=== PATIENT | female | born 1955 | race Caucasian/White ===

== ENCOUNTER 2018-06-21 20:35 | Emergency (ER) | payer BC ==
[~2018-06-21] VITALS: Ht 157.5 cm; Wt 99.5 kg
[2018-06-21 20:38] VITALS: TEMP 98
[2018-06-21 21:26] LABS: BASO % 0.4 % (0.0-2.0); EOS # 0.1 (0.0-0.7); EOS % 1.2 % (0-4.0); GRAN # 5.4 (1.4-6.5); GRAN % 63.4 % (42.2-75.2); HEMATOCRIT 39.9 % (37.0-47.0); HEMOGLOBIN 13.2 g/dl (12.5-16.0); LYMPH # 2.4 (1.2-3.4); LYMPH % 27.7 % (20.0-51.0); MEAN CELL VOLUME 94 fl (80.0-100.0); MEAN CORPUSCULAR HEMOGLOBIN 31 pg (27.0-31.0); MEAN CORPUSCULAR HGB CONC 33 g/dl (33.0-37.0); MEAN PLATELET VOLUME 10.5 fl (7.4-10.4); MONO # 0.6 (0.1-0.6); MONO % 7.1 % (1.7-9.3); PLATELET COUNT 216 K/mm3 (130-400); RED BLOOD COUNT 4.26 M/mm3 (4.10-5.30); REDCELL DISTRIBUTION WIDTH-CV 12.1 % (11.5-14.5)
[2018-06-21 21:34] LABS: ALANINE AMINOTRANSFERASE 31 U/L (9-52); ALBUMIN 4.2 gm/dL (3.5-5.0); ALKALINE PHOSPHATASE 61 U/L (50-136); ANION GAP 9 mmol/L (7-16); AST,SGOT 27 U/L (15-37); BILIRUBIN,TOTAL 0.5 mg/dL (0.0-1.0); BLOOD UREA NITROGEN 16 mg/dL (7-17); C-REACTIVE PROTEIN 2.9 mg/dL (0.0-0.9); CALCIUM 8.5 mg/dL (8.4-10.2); CARBON DIOXIDE 33 mmol/L (22-30); CHLORIDE 98 mmol/L (98-107); CREATININE, serum 0.75 mg/dL (0.52-1.25); GLUCOSE 103 mg/dL (74-106); LIPASE 114 U/L (23-300); POTASSIUM 3.7 mmol/L (3.4-5.0); SODIUM 141 mmol/L (137-145); TOTAL PROTEIN 7.7 gm/dL (6.4-8.2)
[2018-06-21 21:43] LABS: TROPONIN-I < 0.012 ng/mL (0.000-0.034)
[2018-06-21] MEDS ORDERED: ZITHROMAX 250M250 MG PO (23:00)
[2018-06-21 23:35] VITALS: BP 134/53; PULSE 81
== END 2018-06-21 23:37 | disposition home or self-care (01) ==
LOC: COL.ER 20:35
PROVIDERS: Emergency Medicine
DX: J40 Bronchitis, not specified as acute or chronic (principal)

== ENCOUNTER → 2018-07-22 | Outpatient (CLI) | payer BC ==
[~2018-07-22] MED LIST: ZITHROMAX 250M250 MG PO
== END ==
LOC: COL.VAS 09:14
DX: I34.0 Nonrheumatic mitral (valve) insufficiency (principal); I51.89 Other ill-defined heart diseases

== ENCOUNTER 2018-10-23 10:58 | Day surgery (SDC) | payer BC ==
[~2018-10-23] VITALS: Ht 157.5 cm; Wt 101.4 kg
[2018-10-23 11:33] VITALS: BP 142/88; PULSE 92; TEMP 97.2
[2018-10-23 12:55] VITALS: BP 137/88; PULSE 100; TEMP 97.6
[2018-10-23 13:10] VITALS: BP 133/79; PULSE 102
[2018-10-23 13:25] VITALS: BP 107/61; PULSE 80
[2018-10-23 13:40] VITALS: BP 106/66; PULSE 77
[2018-10-23 13:55] VITALS: BP 102/63; PULSE 78
== END 2018-10-23 14:30 | disposition home or self-care (01) ==
LOC: SDCO 10:58
DX: T18.128A Food in esophagus causing other injury, initial encounter (principal); K22.2 Esophageal obstruction; D50.9 Iron deficiency anemia, unspecified; K21.9 Gastro-esophageal reflux disease without esophagitis; Z90.710 Acquired absence of both cervix and uterus
CPT/HCPCS: C1726; J2250; J3010; J7030

== ENCOUNTER → 2018-12-29 | Outpatient (CLI) | payer BC | LOC: COL.RAD 09:44 | DX: M54.5 Low back pain (principal); M25.551 Pain in right hip; M25.552 Pain in left hip; R10.2 Pelvic and perineal pain ==

== ENCOUNTER → 2019-01-21 | Outpatient (CLI) | payer BC ==
[2019-01-23 14:17] LABS: COLLECTION METHOD CLEAN CATCH; URINE COLOR Amber
[2019-01-23 14:18] LABS: PH 5 (5-8); URINE APPEARANCE Turbid; URINE BILIRUBIN Negative (NEGATIVE); URINE GLUCOSE Negative (NEGATIVE); URINE KETONE Negative (NEGATIVE); URINE PROTEIN(semi-quant) 2+ (NEGATIVE)
[2019-01-23 14:19] LABS: SQUAMOUS EPITHELIAL >50 /hpf; URINE BLOOD 2+ (NEGATIVE); URINE LEUKOCYTE ESTERASE 3+ (NEGATIVE); URINE NITRATE Negative (NEGATIVE); URINE RBC 20-50 /hpf
[2019-01-23 14:20] LABS: BUDDING YEAST Present /hpf
== END ==
LOC: ZCOL.LAB 14:18
PROVIDERS: Family Medicine
DX: R35.0 Frequency of micturition (principal)

== ENCOUNTER → 2019-02-02 | Outpatient (CLI) | payer BC | LOC: COL.RAD 09:00 | DX: M51.36 Other intervertebral disc degeneration, lumbar region (principal); M12.88 Other specific arthropathies, not elsewhere classified, other specified site ==

== ENCOUNTER → 2019-02-02 | Outpatient (CLI) | payer BC ==
[2019-02-02 16:12] LABS: ALANINE AMINOTRANSFERASE 28 U/L (9-52); ALBUMIN 3.9 gm/dL (3.5-5.0); ALKALINE PHOSPHATASE 65 U/L (50-136); ANION GAP 7 mmol/L (7-16); AST,SGOT 21 U/L (15-37); BILIRUBIN,TOTAL 0.8 mg/dL (0.0-1.0); BLOOD UREA NITROGEN 15 mg/dL (7-17); CALCIUM 9.2 mg/dL (8.4-10.2); CARBON DIOXIDE 34 mmol/L (22-30); CHLORIDE 99 mmol/L (98-107); CREATININE, serum 0.74 mg/dL (0.52-1.25); GLUCOSE 97 mg/dL (74-106); POTASSIUM 3.9 mmol/L (3.4-5.0); SODIUM 140 mmol/L (137-145); TOTAL PROTEIN 7.1 gm/dL (6.4-8.2)
[2019-02-02 16:14] LABS: DIGOXIN < 0.4 ng/mL (0.8-2.0)
== END ==
LOC: COL.LAB 15:25
PROVIDERS: Internal Medicine Pulmonary Disease
DX: I50.9 Heart failure, unspecified (principal)

== ENCOUNTER → 2019-02-09 | Outpatient (CLI) | payer BC ==
[2019-02-09 16:42] LABS: COLLECTION METHOD CLEAN CATCH
[2019-02-09 17:04] LABS: MUCOUS Present /lpf; PH 5 (5-8); URINE APPEARANCE Turbid; URINE BACTERIA Rare /hpf; URINE BILIRUBIN Negative (NEGATIVE); URINE BLOOD 2+ (NEGATIVE); URINE COLOR Amber; URINE GLUCOSE Negative (NEGATIVE); URINE KETONE Negative (NEGATIVE); URINE LEUKOCYTE ESTERASE 3+ (NEGATIVE); URINE NITRATE Negative (NEGATIVE); URINE PROTEIN(semi-quant) Negative (NEGATIVE)
== END ==
LOC: ZCOL.LAB 15:59
PROVIDERS: Family Medicine
DX: R35.0 Frequency of micturition (principal)

== ENCOUNTER → 2019-03-16 | Outpatient (CLI) | payer BC | LOC: MHCPAIN 08:08 | DX: G89.29 Other chronic pain (principal); M47.817 Spondylosis without myelopathy or radiculopathy, lumbosacral region; M53.3 Sacrococcygeal disorders, not elsewhere classified | CPT/HCPCS: G0463 ==

== ENCOUNTER → 2019-04-13 | Outpatient (CLI) | payer BC | LOC: MHCPAIN 10:50 | DX: G89.29 Other chronic pain (principal); M47.817 Spondylosis without myelopathy or radiculopathy, lumbosacral region; M53.3 Sacrococcygeal disorders, not elsewhere classified | CPT/HCPCS: G0463 ==

== ENCOUNTER → 2019-07-13 | Outpatient (CLI) | payer BC | LOC: MHCPAIN 09:09 | DX: G89.29 Other chronic pain (principal); M47.817 Spondylosis without myelopathy or radiculopathy, lumbosacral region; M53.3 Sacrococcygeal disorders, not elsewhere classified | CPT/HCPCS: G0463 ==

== ENCOUNTER → 2019-08-25 | Outpatient (CLI) | payer BC | LOC: MHCPAIN 08:57 | DX: G89.29 Other chronic pain (principal); M47.817 Spondylosis without myelopathy or radiculopathy, lumbosacral region; M53.3 Sacrococcygeal disorders, not elsewhere classified | CPT/HCPCS: G0463 ==

== ENCOUNTER → 2020-09-11 | Outpatient (CLI) | payer SELFPAY | LOC: COL.RAD 09:23 | DX: R10.9 Unspecified abdominal pain (principal) | CPT/HCPCS: A9537; J2805 ==

== ENCOUNTER 2020-11-07 07:48 | Day surgery (SDC) | payer MEDICARE, MEDICAID ==
[~2020-11-07] VITALS: Ht 157.5 cm; Wt 110.0 kg
[2020-11-07] MEDS ORDERED: KEPPRA 500MG500 MG PO (08:48)
[2020-11-07] MEDS ORDERED: COZAAR 50MG50 MG/TAB PO (08:49)
[2020-11-07] MEDS ORDERED: MOBIC 7.5MG7.5 MG PO (08:50)
[2020-11-07 09:05] VITALS: BP 133/75; PULSE 93; TEMP 99.4
[2020-11-07] MEDS ORDERED: BENTYL 10MG10 MG/CAP PO (09:56)
[2020-11-07 10:00] VITALS: BP 146/64; PULSE 90; TEMP 98.2
[2020-11-07 10:15] VITALS: BP 156/76; PULSE 86
[2020-11-07 10:30] VITALS: BP 145/77; PULSE 95
--- NOTE | 2020-11-07 11:09 | NUR ---
1000 ARRIVES TO [facility] VIA CART. PATIENT AMBULATED TO CHAIR WITH SBA. VSS. WARM BLANKET GIVEN FOR COMFORT. O2 AT 2L/NC. 1005 PATIENT AMBULATED TO BR WITH SBA. 1010 PATIENT AMBULATED BACK TO ROOM AND PLACED ON MONITORS AGAIN. DR. MATTHEW IN ROOM SPEAKING WITH PATIENT. PATIENT DRINKING COFFEE AND EATING A MUFFIN. DENIES COMPLAINT. 1030 VERBAL AND WRITTEN DISCHARGE INSTRUCTIONS GIVEN TO PATIENT. QUESTIONS INVITED AND ANSWERED. SCRIPT FOR DICYCLOMINE GIVEN TO PATIENT. PATIENT VERBALIZED UNDERSTANDING OF ALL INSTRUCTIONS. 1040 IV DISCONTINUED. TOLERATED WELL. PATIENT UP GETTING DRESSED. 1055 DISCHARGED TO POV WITH SPOUSE VIA W/C.
== END 2020-11-07 10:55 | disposition home or self-care (01) ==
LOC: SDCO 07:48
DX: R19.7 Diarrhea, unspecified (principal); R10.31 Right lower quadrant pain; D50.9 Iron deficiency anemia, unspecified; I10 Essential (primary) hypertension; M19.90 Unspecified osteoarthritis, unspecified site; R56.9 Unspecified convulsions; Z20.828 Contact with and (suspected) exposure to other viral communicable diseases; G47.33 Obstructive sleep apnea (adult) (pediatric); Z79.899 Other long term (current) drug therapy; Z87.891 Personal history of nicotine dependence
CPT/HCPCS: J7030

== ENCOUNTER → 2020-11-21 | Outpatient (CLI) | payer MEDICARE, MEDICAID ==
[~2020-11-21] MED LIST changes: +BENTYL 10MG10 MG/CAP PO; +COZAAR 50MG50 MG/TAB PO; +KEPPRA 500MG500 MG PO; +MOBIC 7.5MG7.5 MG PO
== END ==
LOC: COL.RAD 08:09
DX: K57.30 Diverticulosis of large intestine without perforation or abscess without bleeding (principal)

== ENCOUNTER 2020-12-27 16:02 | Inpatient (IN) | payer MEDICARE, MEDICAID ==
[~2020-12-27] VITALS: Ht 157.5 cm; Wt 100.0 kg
[2020-12-27 16:57] LABS: BASO % 0.3 % (0.0-2.0); EOS # 0.1 (0.0-0.7); EOS % 1.7 % (0-4.0); GRAN # 5.1 (1.4-6.5); GRAN % 70.5 % (42.2-75.2); LYMPH # 1.5 (1.2-3.4); LYMPH % 20.8 % (20.0-51.0); MEAN CELL VOLUME 79 fl (80.0-100.0); MEAN CORPUSCULAR HGB CONC 28 g/dl (33.0-37.0); MEAN PLATELET VOLUME 9.7 fl (7.4-10.4); MONO # 0.5 (0.1-0.6); MONO % 6.4 % (1.7-9.3); PLATELET COUNT 261 K/mm3 (130-400); RED BLOOD COUNT 3.67 M/mm3 (4.10-5.30); REDCELL DISTRIBUTION WIDTH-CV 16.5 % (11.5-14.5)
[2020-12-27 17:03] LABS: HEMATOCRIT 29.1 % (37.0-47.0); HEMOGLOBIN 8.2 g/dl (12.5-16.0); MEAN CORPUSCULAR HEMOGLOBIN 22 pg (27.0-31.0)
[2020-12-27 17:12] LABS: ALANINE AMINOTRANSFERASE 15 U/L (4-34); ALBUMIN 4.1 gm/dL (3.5-5.0); ALKALINE PHOSPHATASE 75 U/L (50-136); ANION GAP 4 mmol/L (7-16); AST,SGOT 23 U/L (15-37); BILIRUBIN,TOTAL 0.9 mg/dL (0.0-1.0); BLOOD UREA NITROGEN 12 mg/dL (7-17); C-REACTIVE PROTEIN 1.4 mg/dL (0.0-0.9); CARBON DIOXIDE 34 mmol/L (22-30); CHLORIDE 100 mmol/L (98-107); GLUCOSE 100 mg/dL (74-106); LIPASE 156 U/L (23-300); POTASSIUM 4.3 mmol/L (3.4-5.0); SODIUM 138 mmol/L (137-145); TOTAL PROTEIN 7.6 gm/dL (6.4-8.2)
[2020-12-27 17:22] LABS: TROPONIN-I < 0.012 ng/mL (0.000-0.035)
[2020-12-27 17:52] LABS: COLLECTION METHOD CLEAN CATCH
[2020-12-27 18:38] LABS: BUDDING YEAST Present /hpf; MUCOUS Present /lpf; PH 6 (5-8); URINE APPEARANCE Cloudy; URINE BACTERIA Rare /hpf; URINE BILIRUBIN Negative (NEGATIVE); URINE BLOOD 1+ (NEGATIVE); URINE COLOR Yellow; URINE GLUCOSE Negative (NEGATIVE); URINE KETONE Negative (NEGATIVE); URINE LEUKOCYTE ESTERASE 2+ (NEGATIVE); URINE NITRATE Negative (NEGATIVE); URINE PROTEIN(semi-quant) Negative (NEGATIVE); URINE UROBILINOGEN Negative (NEGATIVE)
[2020-12-27 19:18] LABS: IRON,SERUM 32 ug/dL (35-150)
[2020-12-27 19:28] LABS: TOTAL IRON BINDING CAPACITY 500 ug/dL (265-497)
--- NOTE | 2020-12-27 22:47 | NUR ---
Pt states she has not been wearing her CPAP at home and is fine with her 3lpm, refused hospital CPAP.
[2020-12-27 22:51] VITALS: BP 106/58; PULSE 70; TEMP 97.8
--- NOTE | 2020-12-27 23:28 | NUR ---
Patient arrived medical floor room 316 via wheelchair from ER at 20:05 pm. Patient alert and oriented. Patient reports SOB upon gettting up and ambulates. Patient currently on oxygen 3L via NC. SPO2 96% on 3L via NC. Patient reports buring abdominal pain 07/03 at this time. Called JOSÉ MIGUEL Payne for PRN pain meds for the patient. Patient is scheduled for EGD and Colonoscopy for tomorrow. Bowel prep started. Patient ambulates with unsteady gait. Put bed-side commode by the bed and encouraged patient to use call light when she needs to go to bathroom or needs anything. Patient verbalized understanding. Call light within reach. Patient denies further needs at this time.
[2020-12-28 00:54] VITALS: BP 132/56; PULSE 77; TEMP 97.6
[2020-12-28 07:57] LABS: BASO % 0.2 % (0.0-2.0); EOS # 0.1 (0.0-0.7); EOS % 1.8 % (0-4.0); GRAN # 4.2 (1.4-6.5); GRAN % 68.7 % (42.2-75.2); LYMPH # 1.4 (1.2-3.4); LYMPH % 23.5 % (20.0-51.0); MEAN CELL VOLUME 82 fl (80.0-100.0); MEAN CORPUSCULAR HGB CONC 27 g/dl (33.0-37.0); MEAN PLATELET VOLUME 9.5 fl (7.4-10.4); MONO # 0.3 (0.1-0.6); MONO % 5.6 % (1.7-9.3); PLATELET COUNT 230 K/mm3 (130-400); REDCELL DISTRIBUTION WIDTH-CV 16.8 % (11.5-14.5)
[2020-12-28 07:58] LABS: CALCIUM 10.4 mg/dL (8.4-10.2); CREATININE, serum 0.76 (0.52-1.25); HEMATOCRIT 27.1 % (37.0-47.0); HEMOGLOBIN 7.4 g/dl (12.5-16.0); MEAN CORPUSCULAR HEMOGLOBIN 22 pg (27.0-31.0); POTASSIUM 4.1 mmol/L (3.4-5.0)
[2020-12-28 08:32] VITALS: BP 118/51; PULSE 73; TEMP 97.7
--- NOTE | 2020-12-28 09:27 | NUR ---
Initial visit; Patient thanked Product Marketing Manager for offering prayer and God's blessings. Product Marketing Manager will follow up.
--- NOTE | 2020-12-28 09:30 | NUR ---
Technical Report Writer met with patient to discuss discharge planning. Patient lives in [place], [place] with her Nir (ph#[phone]). Patient reports her will be here around noon today to visit. Patient sees Dr. Santo in [place] for primary care and obtains medications from the [facility] with no difficulties. Patient has a walker and wheelchair at home but reports she only uses the wheelchair when she goes out. Patient also has home oxygen through [employer]. Patient reports independence with ADLS and plans to return home upon discharge. Patient states she had DPOA-HC which designates her , although SW did not find copy in EMR. SW will continue to follow for discharge needs.
--- NOTE | 2020-12-28 10:59 | NUR ---
Churn Driller attended clinical rounds with the team. SW requested PT/OT orders and will continue to follow.
[2020-12-28 11:44] VITALS: BP 112/62; PULSE 75; TEMP 97.4
[2020-12-28 16:16] LABS: HEMATOCRIT 24.1 % (37.0-47.0); HEMOGLOBIN 6.7 g/dl (12.5-16.0)
[2020-12-28 16:55] VITALS: BP 108/47; PULSE 73; TEMP 97.9
[2020-12-28 21:35] VITALS: BP 111/42; PULSE 77; TEMP 97.9
[2020-12-29] VITALS (18 sets, daily range): BP systolic 97–137; BP diastolic 34–80; PULSE 61–96; TEMP 98–99.4
--- NOTE | 2020-12-29 03:42 | NUR ---
Blood transfusion complete. Patient denies any adverse reactions and none noted. V/S stable.
[2020-12-29 07:09] LABS: BASO % 0.2 % (0.0-2.0); EOS % 0.5 % (0-4.0); GRAN # 4.5 (1.4-6.5); GRAN % 77.6 % (42.2-75.2); LYMPH % 16.8 % (20.0-51.0); MEAN CELL VOLUME 85 fl (80.0-100.0); MEAN CORPUSCULAR HGB CONC 28 g/dl (33.0-37.0); MEAN PLATELET VOLUME 10.5 fl (7.4-10.4); MONO # 0.3 (0.1-0.6); MONO % 4.6 % (1.7-9.3); PLATELET COUNT 200 K/mm3 (130-400); RED BLOOD COUNT 3.13 M/mm3 (4.10-5.30); REDCELL DISTRIBUTION WIDTH-CV 16.9 % (11.5-14.5)
[2020-12-29 07:36] LABS: CALCIUM 10.2 mg/dL (8.4-10.2); CREATININE, serum 0.81 (0.52-1.25); POTASSIUM 4.2 mmol/L (3.4-5.0)
[2020-12-29 07:37] LABS: HEMATOCRIT 26.6 % (37.0-47.0); HEMOGLOBIN 7.5 g/dl (12.5-16.0); MEAN CORPUSCULAR HEMOGLOBIN 24 pg (27.0-31.0)
--- NOTE | 2020-12-29 14:20 | NUR ---
Primary nurse was assisted with [id number] patient care by [employer] [facility] student Kerry Arechiga and [facility] Gunjan Cavanaugh RN-.
--- NOTE | 2020-12-29 15:20 | NUR ---
Foil Stamp Operator met with patient to review PT/OT recommendation for Home Health. Patient declined HH services and states she does not want people in her home due to COVID 19. SW contacted patient's to review discharge plan. Patient's , Nir has no concerns about patient returning home but had some questions for Hospitalist. SW contacted JOSÉ MIGUEL Proctor who will give Nir a call. FRANK will continue to follow.
[2020-12-29 17:07] LABS: HEMATOCRIT 29.9 % (37.0-47.0); HEMOGLOBIN 8.6 g/dl (12.5-16.0)
--- NOTE | 2020-12-29 18:43 | NUR ---
PT HAD ANOTHER UNIT OF BLOOD TRANSFUSED TODAY. HGB WENT UP 1 POINT FROM 7.5 TO 8.5. PT HAS HAD SOME NAUSEA, WAS GIVEN 4MG OF ZOFRAN, SOME SALTINE CRACKERS AND SPRITE. PT UPDATED TO DNR STATUS TODAY. NO FURTHER CONCERNS WILL REPORT TO MUSIC STORE MANAGER.
--- NOTE | 2020-12-29 20:15 | NUR ---
Resting in bed. Reported nausea. Ordered obtained for phenergan. Will provide to patient. Assessment complete. Lungs clear. Heart sounds normal. Bowels active x4. Pulses present throughout. BLE edema +1. INT left forearm flushed without complications. Reports pain in ABD. 7/10. Given PRN dilaudid. Denies other needs. Call light in reach.
[2020-12-30] VITALS (8 sets, daily range): BP systolic 112–125; BP diastolic 41–67; PULSE 66–82; TEMP 97.4–99.1
[2020-12-30 02:52] LABS: COLLECTION METHOD CLEAN CATCH
[2020-12-30 03:02] LABS: MUCOUS Present /lpf; PH 5 (5-8); URINE APPEARANCE Turbid; URINE BACTERIA None Seen /hpf; URINE BILIRUBIN Negative (NEGATIVE); URINE BLOOD 1+ (NEGATIVE); URINE COLOR Amber; URINE GLUCOSE Negative (NEGATIVE); URINE KETONE Negative (NEGATIVE); URINE LEUKOCYTE ESTERASE 2+ (NEGATIVE); URINE NITRATE Negative (NEGATIVE); URINE PROTEIN(semi-quant) Negative (NEGATIVE); URINE UROBILINOGEN Negative (NEGATIVE)
--- NOTE | 2020-12-30 06:11 | NUR ---
Patient required phenergan and dilaudid throughout night. Otherwise uneventful night. Resting in bed this AM. Call light in reach.
--- NOTE | 2020-12-30 06:37 | NUR ---
JUDICIAL ADMINISTRATIVE ASSISTANT reported patient slurring words after recent adminstration of phenergan. Patient neuro check intact but reporting right side facial numbness. Grimace equal, smile not large but equal when asked to smile. Alert and orientated. Spoke with Flor VALDEZ. Obtain stat CT head. Patient taken to CT
[2020-12-30 07:07] LABS: BASO % 0.2 % (0.0-2.0); EOS % 0.2 % (0-4.0); GRAN # 4.5 (1.4-6.5); GRAN % 71.9 % (42.2-75.2); LYMPH # 1.1 (1.2-3.4); LYMPH % 17.7 % (20.0-51.0); MEAN CELL VOLUME 87 fl (80.0-100.0); MEAN CORPUSCULAR HGB CONC 28 g/dl (33.0-37.0); MEAN PLATELET VOLUME 10.2 fl (7.4-10.4); MONO # 0.6 (0.1-0.6); PLATELET COUNT 191 K/mm3 (130-400)
--- NOTE | 2020-12-30 07:11 | NUR ---
Report given to JOHANNA Pollock
[2020-12-30 07:19] LABS: CALCIUM 10.4 mg/dL (8.4-10.2); CREATININE, serum 0.84 (0.52-1.25); HEMOGLOBIN 8.7 g/dl (12.5-16.0); MEAN CORPUSCULAR HEMOGLOBIN 24 pg (27.0-31.0); POTASSIUM 4.1 mmol/L (3.4-5.0)
[2020-12-30 07:20] LABS: HEMATOCRIT 31.4 % (37.0-47.0)
--- NOTE | 2020-12-30 07:30 | NUR ---
Pt back to room from CT. Sitting up in chair. Still having some slurred speech.
--- NOTE | 2020-12-30 08:56 | NUR ---
Assessment complete. Pt lying in bed. Speech is much clearer than earlier in shift. Pt c/o nausea, PRN zofran given. Will give PO meds once nausea improves. Pt denies further needs at this time. Bed alarm on. Call light within reach.
--- NOTE | 2020-12-30 10:51 | NUR ---
Pt to MRI via wheelchair
--- NOTE | 2020-12-30 11:42 | NUR ---
Pt back to room after MRI. IV Keppra infusing without difficulty. Call light within reach.
--- NOTE | 2020-12-30 12:35 | NUR ---
Pt c/o pain to back at 10. PRN dilaudid given. Pt denies other needs. Call light within reach.
--- NOTE | 2020-12-30 16:16 | NUR ---
PRN dilaudid given for c/o back/hip pain rated 9/10
--- NOTE | 2020-12-30 20:01 | NUR ---
Patient assessment complete. Lungs diminished in bases otherwise clear. Heart sounds normal. Bowels active x4. Pulses present throughout. Bilateral lower extremity edema +1. INT left forearm flushed without complications. Denies pain at this time. Patient noted to have tremors when reaching for cup to take medications with right hand. Patient took medications without complications, then reported "this is what happens when I have my seizures, my hand shakes." Questioned if possible tremors. Patient reports right hand shakes or she has grandmal seizures. Updated and spoke with Flor VALDEZ. Okay to give PRN ativan for seizure symptoms. VS taken. Patient 84% on 2 liters. Increased to 5 liters and up to 97%, titrated down to 3 liters and now 93%. Respiratory therapist updated regarding change. Will continue to closely monitor.
--- NOTE | 2020-12-30 21:29 | NUR ---
Reported nausea. Given PRN zofran. Oxygen saturations 94% on liters. No tremors noted of right arm. Will continue to monitor.
[2020-12-31] VITALS (10 sets, daily range): BP systolic 98–138; BP diastolic 33–78; PULSE 64–105; TEMP 97.3–98.8
--- NOTE | 2020-12-31 00:08 | NUR ---
Up to restroom and returned to bed. Denies needs. Call light in reach.
--- NOTE | 2020-12-31 01:38 | NUR ---
Asleep in bed. Call light in reach.
--- NOTE | 2020-12-31 03:09 | NUR ---
Respiratory contacted nurse stating patient oxygen saturation 73% on 4 liters. Patient laying on left side slid down in bed. Patient repositioned. Increased to 15 liters oxymask. Currently 95% oxygen saturations. Spoke with Flor VALDEZ. Obtain ABG and place patient on bipap/cpap. Patient reported wearing CPAP at home that has broke and recent sleep study patient reported stopped breathing over 100 times. Informed Flor VALDEZ of this information. Patient is alert and orientated. No change in color. Reports shortness of breath-states "like normal." Lung gomez diminshed throughout. Flor VALDEZ updated on lung sounds. Ordered duoneb. Will come see patient. 0330 Patient placed on bipap at 40% fiO2 at this time. Tolerating well. At 95% currently. Will continue to monitor.
[2020-12-31 03:37] LABS: ARTERIAL BLD GAS O2 SATURATION 95.7 % (92-100); ARTERIAL BLD GAS TCO2 CT 35.6; ARTERIAL BLOOD GAS BASE EXCESS 6.5 (-2-2); ARTERIAL BLOOD GAS HCO3 33.6 meq/L (22-26); ARTERIAL BLOOD GAS PCO2 64.5 mmHg (35-45); ARTERIAL BLOOD GAS PO2 76.2 mmHg (80-100); ARTERIAL BLOOD GAS pH 7.34 (7.35-7.45)
--- NOTE | 2020-12-31 04:21 | NUR ---
Continues of 50% FiO2. 94% saturations. Will continue to monitor.
--- NOTE | 2020-12-31 05:37 | NUR ---
This RT called to pt room for large mask leak. Nursing at bedside and leak has been resolved. However, pt is complaining of discomfort and wants the mask off. It is explained frankly by both RN and this RT that with out the BiPap the patient may . Pt expresses she is a DNR and states to take the mask off and she understands she could . She is at this time placed on the 15lpm oymask. This RT let the patient know she can change her mind at any time and return to BiPap tx. Pt nodded understanding RT will continue to monitor this patient.
--- NOTE | 2020-12-31 05:51 | NUR ---
Patient refusing bipap. On 15 liters oxymask at 92%. Flor VALDEZ updated. Will come talk with patient. Per Flor VALDEZ patient airway management only.
[2020-12-31 07:03] LABS: EOS % 0.5 % (0-4.0); GRAN # 4.6 (1.4-6.5); GRAN % 74.7 % (42.2-75.2); LYMPH % 15.3 % (20.0-51.0); MEAN CELL VOLUME 86 fl (80.0-100.0); MEAN CORPUSCULAR HGB CONC 28 g/dl (33.0-37.0); MEAN PLATELET VOLUME 9.7 fl (7.4-10.4); MONO # 0.6 (0.1-0.6); MONO % 8.9 % (1.7-9.3); PLATELET COUNT 168 K/mm3 (130-400); RED BLOOD COUNT 3.45 M/mm3 (4.10-5.30); REDCELL DISTRIBUTION WIDTH-CV 16.9 % (11.5-14.5)
[2020-12-31 07:04] LABS: HEMATOCRIT 29.6 % (37.0-47.0); HEMOGLOBIN 8.4 g/dl (12.5-16.0); MEAN CORPUSCULAR HEMOGLOBIN 24 pg (27.0-31.0)
--- NOTE | 2020-12-31 07:07 | NUR ---
PT SLEEPING ON 15L OXYMASK, SATTING 93%.
[2020-12-31 07:12] LABS: CALCIUM 10.5 mg/dL (8.4-10.2); CREATININE, serum 0.82 (0.52-1.25); POTASSIUM 3.9 mmol/L (3.4-5.0)
--- NOTE | 2020-12-31 07:14 | NUR ---
Report given to JOHANNA Weston
--- NOTE | 2020-12-31 09:19 | NUR ---
PT ASSISTED TO BATHROOM STANDBY ASSIST WITH WALKER. WEAK GAIT, PT DROWSY IN ROOM, HAD TO WAKE HER UP TO GIVE PILLS, L COORDINATE MEASURING EQUIPMENT OPERATOR WEAKER THAN RIGHT, PT AOX4, TOOK PILLS WITH WATER, DID NOT WANT TO ORDER BREAKFAST, TALKS IN A SOFT VOICE, NO OTHER NEEDS, VITALS REVIEWED.
--- NOTE | 2020-12-31 12:17 | NUR ---
RECEIVED CALL FROM SUSAN THAT DYNAMAP WAS READING LOW PRESSURES ON PT. WENT IN TO TAKE MANUAL, PT REPORTS BEING DROWSY BUT SHE HAS BEEN ALL DURING THE SHIFT, DENIES DIZZINESS OR LIGHT HEADEDNESS. MANUAL BP STABLE.
--- NOTE | 2020-12-31 13:46 | NUR ---
pt weaned from 15L slowly down to 4l. pt was 93% for a few minutes and dropped to 84%. pt turned back up to 6l and came up to 95% again after a couple minutes. this happened again with another trial of attempting to wean down to 4l. pt at 5l right now at 90%. will continue to monitor. after about 10 more min pt started satting around 85%. pt became restless in the bed. pt sat up in the bed. pt then decided she wanted to eat lunch, pt up at edge of bed. had to turn oxygen up to 8l to sat above 90%. now at 94% with a high flow cannula so she can eat.
--- NOTE | 2020-12-31 14:12 | NUR ---
UPDATED POTHURU OF PT BEING ON 8L
--- NOTE | 2020-12-31 14:52 | NUR ---
PT TRANSFERRING TO WHEELCHAIR TO GET CT.
--- NOTE | 2020-12-31 15:25 | NUR ---
PT RETURNED FROM CT
--- NOTE | 2020-12-31 15:35 | NUR ---
RT FAILED FIRST ATTEMPT AT ABG DRAW, PT REFUSING ANOTHER ATTEMPT. PROVIDER NOTIFIED.
--- NOTE | 2020-12-31 16:21 | NUR ---
PT WEANED DOWN TO 4L, SATTING 100%. WILL LET HER ADJUST AND THEN ATTEMPT TO WEAN DOWN FURHTER
--- NOTE | 2020-12-31 16:39 | NUR ---
PT SLEEPING AND PULSE OX ALARMING AT 89%, TURNED PT UP TO 5L AND SATTING 91%.
--- NOTE | 2020-12-31 17:10 | NUR ---
PT WEARING BIPAP IN ROOM. OVERALL PT VERY LETHARGIC DURING SHIFT. PT SLEEPING IN BED ALMOST ALL OF SHIFT, AMBULATES TO BATHROOM WITH WALKER. PT PALE IN COLOR, PULMONOLOGY CONSULTED AND VISITED. LITTLE INPUT TODAY. MEDICATIONS TAKEN.
--- NOTE | 2020-12-31 17:22 | NUR ---
PT REFUSING BIPAP NOW, ATTEMPTED TO REPOSITION THE MASK SINCE THAT WAS PT COMPLAINT. PT STILL REFUSING DESPITE EDUCATION ON FUNCTION OF IT AND IMP WITH HER RESPIRATORY HEALTH. PLACED BACK ON OXYGEN 6L NC. RESPIRATORY THERAPY NOTFIED.
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
--- NOTE | 2020-12-31 21:00 | NUR ---
PATIENT WASRECEIVED IN BED CALM,REPORTED OF PAIN NOT BEING RELIEVED BY TYLENOL,PROVIDER NOTIFIED.ORDERS PWR JAN.DUE MEDS GIVEN ASSESSMENT DONE.NO OTHER NEEDS AT THIS TIME
--- NOTE | 2021-01-01 03:15 | NUR ---
PATIRNT REPORTED OF NAUSEA,ZOFRAN ADMINISTERED.
[2021-01-01 04:19] VITALS: BP 127/54; PULSE 83; TEMP 97.9
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
[2021-01-01 06:40] LABS: BASO % 0.2 % (0.0-2.0); EOS % 0.9 % (0-4.0); GRAN # 3.1 (1.4-6.5); LYMPH # 0.8 (1.2-3.4); LYMPH % 18.6 % (20.0-51.0); MEAN CELL VOLUME 85 fl (80.0-100.0); MEAN CORPUSCULAR HGB CONC 28 g/dl (33.0-37.0); MEAN PLATELET VOLUME 10.1 fl (7.4-10.4); MONO # 0.4 (0.1-0.6); MONO % 8.6 % (1.7-9.3); PLATELET COUNT 157 K/mm3 (130-400); RED BLOOD COUNT 3.54 M/mm3 (4.10-5.30); REDCELL DISTRIBUTION WIDTH-CV 16.6 % (11.5-14.5)
[2021-01-01 06:51] LABS: ALBUMIN 3.2 gm/dL (3.5-5.0); BILIRUBIN,TOTAL 1.1 mg/dL (0.0-1.0); CALCIUM 10.8 mg/dL (8.4-10.2); CREATININE, serum 0.74 (0.52-1.25); POTASSIUM 3.7 mmol/L (3.4-5.0); TOTAL PROTEIN 6.1 gm/dL (6.4-8.2)
[2021-01-01 06:52] LABS: HEMOGLOBIN 8.4 g/dl (12.5-16.0); MEAN CORPUSCULAR HEMOGLOBIN 24 pg (27.0-31.0)
--- NOTE | 2021-01-01 07:37 | NUR ---
PT IN BED WATCHING A MOVIE, IV GOING OFF SO IV FLUSHED.
[2021-01-01 08:56] VITALS: BP 120/62; PULSE 77; TEMP 97.8
--- NOTE | 2021-01-01 09:51 | NUR ---
PT PLEASANT, PT ALERT TODAY, PT NOT DROWSY, PT IN BETTER SPIRITS AFTER TALKING TO , PT FOUND SOMEBODY TO WATCH THEIR DOGS, PT ASSESSMENT PERFORMED, PT TURNED DOWN TO 5L NC, PT HAD EEG, PT UP TO SIDE OF BED TO EAT BREAKFAST, NO OTHER NEEDS.
[2021-01-01 11:24] VITALS: BP 130/47; PULSE 88; TEMP 97.5
--- NOTE | 2021-01-01 11:45 | NUR ---
PT REPORTING PAIN 9/10 "ALL OVER, AND ON MY BACK". GAVE AURELIO, EDUCATED HER GETTING UP TO THE CHAIR WOULD HELP HER BACK AND IMPROVE LUNG FUNCTION. PT NOT AGREEABLE TO THIS.
--- NOTE | 2021-01-01 15:36 | NUR ---
PT REPORTING TWO SEIZURES TODAY. ONE WAS DURING SPEECH SWALLOW STUDY, THEY REPORTED PT ALERT AND ORIENTED BUT HAD RIGHT HAND SHAKING. INFORMED PT TO TELL ME WHEN SHE HAS SEIZURES SO I CAN ADMINISTER ATIVAN. PT ASSISTED TO BATHROOM WITH WALKER. ENCOURAGED PT GOING TO THE CHAIR AND PT AGREED. PT SAT UP IN THE CHAIR WITH LEGS ELEVATED AND BED ALARM SET, PT HAS CALL LIGHT WITH HER AND WATER ON TABLE NEXT TO HER. NO OTHER NEEDS AT THIS TIME.
[2021-01-01 15:40] VITALS: BP 117/45; PULSE 91; TEMP 97.7
--- NOTE | 2021-01-01 15:43 | NUR ---
TOLD TABBY SULLIVAN ABOUT REPORT OF TWO SEIZURES. SHE ADDED ON LAB TO ORDERS.
--- NOTE | 2021-01-01 16:13 | NUR ---
NOTIFIED DR. HAMILTON OF 2 SEIZURES OCCURING TODAY. NOTIFIED HIM ALSO OF INCONSISTENT CODE STATUS FROM ORDER TO PHYSICIAN NOTES.
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
--- NOTE | 2021-01-01 17:37 | NUR ---
PT LESS LETHARGIC TODAY, 2 SEIZURES REPORTED, PHYSICIAN AWARE, PT ON 5L NC, PT UP TO CHAIR FOR A FEW HOURS, PT REPORTING PAIN GENERALIZED IN BODY, REQUESTED NORCO ONCE, NO OTHER NEEDS.
[2021-01-01 20:00] VITALS: BP 114/44; PULSE 86; TEMP 98.4
--- NOTE | 2021-01-01 21:34 | NUR ---
PATIENT WAS RECEIVED FAIR IN BED ON O2 VIA NC.REPORTED PAIN AND REQUESTED FOR A SLEEPING PILL.PROVIDER INFORMED ORDER PER JAN.DUE MEDS GIVEN,ASSESSMENT DONE,NO NEEDS AT THIS TIME.
[2021-01-02] VITALS (7 sets, daily range): BP systolic 120–136; BP diastolic 36–61; PULSE 85–103; TEMP 97.3–98.3
--- NOTE | 2021-01-02 05:06 | NUR ---
PATIENT HAD A ARGELIA REST,ON O2 VIA NC.DUE MEDS GIVEN.REPORTS OF HEADACHE BUT DOES NOT WANT PAIN MEDS AT THIS TIME.
--- NOTE | 2021-01-02 08:02 | NUR ---
PT GIVEN PAIN MEDICATION WITH OTHER MORNING MEDS, PT AGREED TO GET UP TO CHAIR AGAIN TODAY, PT AGREED TO INC FLUIDS TO LOOSEN SECRETIONS, PT REFUSING BREAKFAST SINCE SHE ISN'T HUNGRY, EDUCATED HER ON IMP OF EATING FOR RECOVERY OF ILLNESS, VITALS REVIEWED, NO OTHER NEEDS.
[2021-01-02 08:25] LABS: BASO % 0.4 % (0.0-2.0); EOS # 0.1 (0.0-0.7); EOS % 1.3 % (0-4.0); GRAN # 3.8 (1.4-6.5); GRAN % 70.6 % (42.2-75.2); LYMPH # 0.9 (1.2-3.4); LYMPH % 17.5 % (20.0-51.0); MEAN CELL VOLUME 85 fl (80.0-100.0); MEAN CORPUSCULAR HGB CONC 28 g/dl (33.0-37.0); MONO # 0.5 (0.1-0.6); MONO % 9.8 % (1.7-9.3); PLATELET COUNT 152 K/mm3 (130-400); RED BLOOD COUNT 3.41 M/mm3 (4.10-5.30); REDCELL DISTRIBUTION WIDTH-CV 17.3 % (11.5-14.5)
[2021-01-02 08:28] LABS: HEMOGLOBIN 8.1 g/dl (12.5-16.0); MEAN CORPUSCULAR HEMOGLOBIN 24 pg (27.0-31.0)
[2021-01-02 08:42] LABS: CALCIUM 10.5 mg/dL (8.4-10.2); CREATININE, serum 0.73 (0.52-1.25); POTASSIUM 3.6 mmol/L (3.4-5.0)
--- NOTE | 2021-01-02 09:30 | NUR ---
CRITICAL CO2 REPORTED TO UZMA VALDEZ
--- NOTE | 2021-01-02 11:09 | NUR ---
PATIENT ABLE TO WEAN TO 3 LPM, SPO2 95%.
--- NOTE | 2021-01-02 14:05 | NUR ---
UPDATED UZMA VALDEZ THAT PT REFUSING MIRALAX
--- NOTE | 2021-01-02 16:57 | NUR ---
Well Tender followed up with patient and she advised she has not heard anything from Gavi Thrasher about her 's surgery. Patient advised SW that she has her portable oxygen here with her and it should be charged up enough to get home on. SW will continue to follow.
--- NOTE | 2021-01-02 17:50 | NUR ---
PT REPORTING BLOODY NOSE AND LARGE GREEN SPECIMEN FROM NOSE THAT RESEMBLED A GREEN GRAPE PEEL. TRIED TO CALL UZMA BUT LINE WAS BUSY. HAD LAURIE COME LOOK AT IT AND SHE SAID IT WAS JUST A LARGE BOOGER. UZMA CALLED BACK AND INFORMED OF SITUATION. PT PLACED ON BUBBLER FOR DRY NOSE.
--- NOTE | 2021-01-02 20:00 | NUR ---
PATIENT WAS RECEIVED FAIR IN BED.PATIENT IS ON O2 THERAPY.DUE MEDS GIVEN,ASSESSMENT DONE.NO OTHER NEEDS AT THIS TIME.
[2021-01-03 03:33] VITALS: BP 118/40; PULSE 80; TEMP 98.6
--- NOTE | 2021-01-03 06:14 | NUR ---
PATIENT HAD A CALM NIGHT ON O2 THERAPY.DUE MEDS GIVEN.SHE IS WORRIED ABOUT HER 'S CONDITION.NO ANY OTHER NEEDS AT THIS TIME.
[2021-01-03 07:02] LABS: BASO % 0.2 % (0.0-2.0); EOS # 0.1 (0.0-0.7); EOS % 1.7 % (0-4.0); GRAN # 3.5 (1.4-6.5); GRAN % 72.7 % (42.2-75.2); HEMATOCRIT 28.4 % (37.0-47.0); HEMOGLOBIN 8.1 g/dl (12.5-16.0); LYMPH # 0.9 (1.2-3.4); LYMPH % 17.9 % (20.0-51.0); MEAN CELL VOLUME 85 fl (80.0-100.0); MEAN CORPUSCULAR HEMOGLOBIN 24 pg (27.0-31.0); MEAN CORPUSCULAR HGB CONC 29 g/dl (33.0-37.0); MONO # 0.3 (0.1-0.6); MONO % 7.1 % (1.7-9.3); PLATELET COUNT 158 K/mm3 (130-400); RED BLOOD COUNT 3.33 M/mm3 (4.10-5.30); REDCELL DISTRIBUTION WIDTH-CV 18.1 % (11.5-14.5)
[2021-01-03 07:19] LABS: CALCIUM 10.7 mg/dL (8.4-10.2); CREATININE, serum 0.71 (0.52-1.25); POTASSIUM 3.5 mmol/L (3.4-5.0)
[2021-01-03 08:03] VITALS: BP 133/58; PULSE 89; TEMP 97.9
--- NOTE | 2021-01-03 10:26 | NUR ---
Assessment complete. PAtient sitting up in recliner attempting to call Gavi to check on her . States that Dr. Carson was in this morning and was very rude regarding her seizures and POC, states she may not want him to be apart of her care anymore. I assured her that social work could aslo assist with her getting in touch with Gavi. no complaints of pain or discomfort were expressed. Will continue to monitor. Call light is in reach.
[2021-01-03 11:38] VITALS: BP 110/47; PULSE 83; TEMP 97.7
[2021-01-03 12:21] LABS: ARTERIAL BLD GAS O2 SATURATION 94.7 % (92-100); ARTERIAL BLD GAS TCO2 CT 44.7; ARTERIAL BLOOD GAS BASE EXCESS 15.1 (-2-2); ARTERIAL BLOOD GAS HCO3 42.5 meq/L (22-26); ARTERIAL BLOOD GAS PO2 75.8 mmHg (80-100); ARTERIAL BLOOD GAS pH 7.39 (7.35-7.45)
[2021-01-03 12:23] LABS: ARTERIAL BLOOD GAS PCO2 72.6 mmHg (35-45)
--- NOTE | 2021-01-03 15:47 | NUR ---
Director Of Resource Development attended clinical rounds and patient's oxygen needs have increased. Pysch consult ordered. FRANK was contacted by Lulu in Speech Therapy who advised if patient would be agreeable to Home Health, she would recommend ST. FRANK will continue to follow.
[2021-01-03 16:20] VITALS: BP 134/59; PULSE 88; TEMP 97.4
--- NOTE | 2021-01-03 17:18 | NUR ---
Patient has had a good shift. PRN pain medication given as needed for ribs and stomach pain that patient states is from a hernia that was not fixed last time GI did surgery? Patient remains on 7L/HF NC and is satting mid to low 90s. Patient continues to have a flat affect but did get to speak to Gavi and her today. No other needs were expressed at this time. Call light is in reach. Cam macdonald to monitor.
[2021-01-03 20:47] VITALS: BP 120/54; PULSE 86; TEMP 97.8
--- NOTE | 2021-01-03 23:35 | NUR ---
Patient laying in bed and resting upon enter the room. Assessment completed. Patient currently on 5L via NC. Patient denies SOB or dyspnea while at rest. No s/s of respiratory distress noted. Patient denies Pain or discomfort at this time. Patient expressed concerns for her staying in the [facility]. Provided emotional support. All scheduled meds given per JAN. Patient states she wanted to try C-pap tonight and requested Ativan for her anxiety. PRN Ativan given for anxiety and called respiratory for C-pap. Call light within reach. Patient denies further needs at this time.
[2021-01-03 23:54] VITALS: BP 108/49; PULSE 78; TEMP 97.6
[2021-01-04 04:41] VITALS: BP 116/49; PULSE 81; TEMP 97.8
--- NOTE | 2021-01-04 05:43 | NUR ---
Patient slept on and off over the night. Awake around 04:50 am and c/o abdominal pain. PRN [place] given at 04:56 am for pain. Currently on 5L via NC. No acute respiratory distress noted throughout the night.
[2021-01-04 05:54] LABS: ARTERIAL BLD GAS O2 SATURATION 97.7 % (92-100); ARTERIAL BLOOD GAS BASE EXCESS 11.6 (-2-2); ARTERIAL BLOOD GAS HCO3 36.5 meq/L (22-26); ARTERIAL BLOOD GAS PCO2 50.9 mmHg (35-45); ARTERIAL BLOOD GAS PO2 96.5 mmHg (80-100); ARTERIAL BLOOD GAS pH 7.47 (7.35-7.45)
[2021-01-04 07:12] VITALS: BP 124/52; PULSE 78; TEMP 97.9
[2021-01-04 07:56] LABS: BASO % 0.2 % (0.0-2.0); CALCIUM 11.3 mg/dL (8.4-10.2); CREATININE, serum 0.79 (0.52-1.25); EOS # 0.1 (0.0-0.7); EOS % 2.4 % (0-4.0); GRAN # 3.4 (1.4-6.5); GRAN % 73.9 % (42.2-75.2); LYMPH # 0.7 (1.2-3.4); MEAN CELL VOLUME 86 fl (80.0-100.0); MEAN CORPUSCULAR HGB CONC 29 g/dl (33.0-37.0); MEAN PLATELET VOLUME 10.6 fl (7.4-10.4); MONO # 0.4 (0.1-0.6); MONO % 8.3 % (1.7-9.3); PLATELET COUNT 170 K/mm3 (130-400); POTASSIUM 3.7 mmol/L (3.4-5.0); RED BLOOD COUNT 3.39 M/mm3 (4.10-5.30); REDCELL DISTRIBUTION WIDTH-CV 18.8 % (11.5-14.5)
[2021-01-04 07:59] LABS: HEMATOCRIT 29.2 % (37.0-47.0); HEMOGLOBIN 8.4 g/dl (12.5-16.0); MEAN CORPUSCULAR HEMOGLOBIN 25 pg (27.0-31.0)
--- NOTE | 2021-01-04 09:08 | NUR ---
Assessment complete. Patient currently up working with OT at time, ambulated well with the walker and was able to get back into bed independently. States she spoke with his and that he had a stroke and it was hard to understand him. patient seems discouraged and remains up set about the whole situation. Continuing to give positive feedback. Will continue to monitor. CAll light is in reach.
[2021-01-04 11:38] VITALS: BP 136/69; PULSE 86; TEMP 97.7
--- NOTE | 2021-01-04 16:36 | NUR ---
Telecommunications Repairer attended clinical rounds with the team and patient is feeling nauseous. Later in the day, SW followed up with patient about Home Health services, especially since patient's is currently in the hospital and will not be home to help her. Patient again declines and states she does not want anyone in her home. SW spoke with patient about a medical alert button and patient states she does not need one and has a landline phone. SW will continue to follow.
[2021-01-04 16:44] VITALS: BP 139/51; PULSE 89; TEMP 98.3
--- NOTE | 2021-01-04 17:32 | NUR ---
Patient has had an uneventful shift. Nausea was an issue, PRN phenergan provided as needed per MAR, this made patient sleepy at the beggining of the day. At this time patient states she is nauseous again and would like more nausea medication, this was provided. Patient also states "I feel like I am aspirating", phlem is present in the back of patients throat likely patel on by breathing treatment prior, encouraged her to cough as getting rid of this would be effective. Will continue to monitor. Call light is in reach. Fall precautions are in place.
[2021-01-04 20:46] VITALS: BP 121/36; PULSE 94; TEMP 98
--- NOTE | 2021-01-04 23:20 | NUR ---
Patient sitting up in bed and upon shift start. patient c/o abdominal pain 05/03. Denies N/V. PRN [place] given at 19:09 pm for pain. Patient denies SOB or dyspnea while at rest. Patient currently on 5L via NC. No acute respiratory distress noted at this time. Call light within reach. Patient denies further needs at this time.
[2021-01-05 00:02] VITALS: BP 131/58; PULSE 91; TEMP 97.9
[2021-01-05 03:51] VITALS: BP 120/52; PULSE 77; TEMP 97.8
--- NOTE | 2021-01-05 06:24 | NUR ---
Patient denies any seizure activities over the night. Denies N/V. Reports her pain 5/10 to her abdominal area. PRN [place] given around 05:30 am for pain. Call light within reach. Patient denies further needs at this time.
[2021-01-05 06:50] LABS: BASO % 0.3 % (0.0-2.0); EOS # 0.1 (0.0-0.7); EOS % 2.2 % (0-4.0); GRAN # 4.1 (1.4-6.5); GRAN % 70.7 % (42.2-75.2); LYMPH # 1.1 (1.2-3.4); LYMPH % 18.5 % (20.0-51.0); MEAN CELL VOLUME 85 fl (80.0-100.0); MEAN CORPUSCULAR HGB CONC 29 g/dl (33.0-37.0); MEAN PLATELET VOLUME 10.4 fl (7.4-10.4); MONO # 0.5 (0.1-0.6); PLATELET COUNT 201 K/mm3 (130-400); RED BLOOD COUNT 3.51 M/mm3 (4.10-5.30); REDCELL DISTRIBUTION WIDTH-CV 19.3 % (11.5-14.5)
[2021-01-05 06:59] LABS: CALCIUM 11.1 mg/dL (8.4-10.2); CREATININE, serum 0.76 (0.52-1.25); HEMATOCRIT 29.9 % (37.0-47.0); HEMOGLOBIN 8.6 g/dl (12.5-16.0); MEAN CORPUSCULAR HEMOGLOBIN 25 pg (27.0-31.0); POTASSIUM 3.9 mmol/L (3.4-5.0)
--- NOTE | 2021-01-05 07:41 | NUR ---
Patient alert and oriented. ambulated to the bathroom with one person assist using walker.
[2021-01-05 07:46] VITALS: BP 131/60; PULSE 80; TEMP 98.2
--- NOTE | 2021-01-05 09:40 | NUR ---
Right hand tremor observed, patient said that happens whenever sheis having seizure. during the "seizure", patient was alert, oriented, arms were functional. patient answer questions correctly. patient mentioned that she is feeling irritable this morning. Patient decline Marilax, she said she doesn't feel constipated, and last bowel movement was on 12/27/20. patient said long bowel duration is unusual. RN educated patient on the benefit of Marilax. Patient resting comfortably in bed with call light within reach.
[2021-01-05] MEDS ORDERED: FERROUS SU325 MG/TAB PO (10:48)
[2021-01-05] MEDS ORDERED: KEPPRA1000 MG PO (10:49)
[2021-01-05] MEDS ORDERED: ZOLOFT 50MG50 MG PO (10:49)
[2021-01-05] MEDS ORDERED: MIRALAX510G PO (10:50)
[2021-01-05] MEDS ORDERED: PROTONIX 40MG T40 MG PO (10:51)
[2021-01-05] MEDS ORDERED: PROMETHAZINE12.5 M5 PO ×2 (10:55→12:44)
[2021-01-05] MEDS ORDERED: CLEOCIN HCL300 MG PO (11:05)
[2021-01-05 13:05] VITALS: BP 138/61; PULSE 87; TEMP 98.4
--- NOTE | 2021-01-05 16:51 | NUR ---
Flanging Operator attended clinical rounds with the team and patient will discharge home today. Hospitalist strongly encouraged Home Health and patient is agreeable. FRANK met with patient to discuss options and she chose [facility]. Patient again states she has her portable oxygen concentrator and it has three hours left on it and her home is about an hour away. Patient states she rents her concentrators through her insurance and does not want to order her oxygen through anywhere else. Patient states she would like [facility]. SW discussed with patient how she plans to get into her home as her walker is at home. Patient states she will manage and will get into her home just fine. Patient does advise that her CPAP machine is not working. SW contacted [facility] and they advised patient would have to bring in the machine to be worked on. SW provided this update to patient. FRANK contacted Mushtaq at [facility] and faxed referral. Initially, Mushtaq advised they were able to accept, however later in the afternoon after patient left, Cathy with [facility] called and advised they are out of network. FRANK contacted Geni at [facility] and faxed referral. Geni advised they are in network and will accept patient. Geni states they will work on getting authorization as soon as possible, which could be over the weekend. Geni lozano can also call over the weekend to check on patient. FRANK contacted patient at home and patient answered confirming that she made it home and is doing alright. Patient states she has enough food to get through the weekend. SW advised patient that [facility] is out of network and patient states she understands and also received a call from [facility] about this. Patient is agreeable to [facility]. FRANK made a report earlier in the day to Adult Protective Services (intake #[id number]) as patient is discharging home alone and reports she has no other supports and no one to check on her since her is in the hospital. No additional needs at this time.
== END 2021-01-05 14:00 | disposition home health service (06) | DRG 380 ==
LOC: COL.ER 16:02 → MEDICAL 18:10
PROVIDERS: Internal Medicine Gastroenterology; Internal Medicine Sleep Medicine; Nurse Practitioner Family; Nurse Practitioner Primary Care; Physician Assistant; Student in an Organized Health Care Education/Training Program; ADMIT Student in an Organized Health Care Education/Training Program
PROC: 0DBN8ZZ Excision of Sigmoid Colon, Via Natural or Artificial Opening Endoscopic (ICD-10-PCS; 2020-12-28)
PROC: 0DB98ZX Excision of Duodenum, Via Natural or Artificial Opening Endoscopic, Diagnostic (ICD-10-PCS; principal; 2020-12-28 13:00)
PROC: 0DB68ZX Excision of Stomach, Via Natural or Artificial Opening Endoscopic, Diagnostic (ICD-10-PCS; 2020-12-28 13:00)
DX: K22.10 Ulcer of esophagus without bleeding (principal); J96.21 Acute and chronic respiratory failure with hypoxia; J18.9 Pneumonia, unspecified organism; Z68.41 Body mass index [BMI] 40.0-44.9, adult; D50.9 Iron deficiency anemia, unspecified; K21.9 Gastro-esophageal reflux disease without esophagitis; I10 Essential (primary) hypertension; G40.909 Epilepsy, unspecified, not intractable, without status epilepticus; J98.4 Other disorders of lung; M19.90 Unspecified osteoarthritis, unspecified site; Z66 Do not resuscitate; K44.9 Diaphragmatic hernia without obstruction or gangrene; Z20.822 Contact with and (suspected) exposure to COVID-19; R00.2 Palpitations; G47.33 Obstructive sleep apnea (adult) (pediatric); E66.01 Morbid (severe) obesity due to excess calories; D12.5 Benign neoplasm of sigmoid colon; K92.1 Melena; N95.0 Postmenopausal bleeding; K64.0 First degree hemorrhoids; N93.8 Other specified abnormal uterine and vaginal bleeding; E83.52 Hypercalcemia; F41.8 Other specified anxiety disorders; Z86.73 Personal history of transient ischemic attack (TIA), and cerebral infarction without residual deficits; Z99.81 Dependence on supplemental oxygen; Z87.891 Personal history of nicotine dependence; Z90.710 Acquired absence of both cervix and uterus
CPT/HCPCS: 99232-AI; 99233-AI; C9113; G0378; J0456; J0696; J1170; J1953; J2060; J2405; J2550; J2704; J3010; J7030; J7050; P9016; Q9967